=== PATIENT | male | born 1960 | race Hispanic/Latino ===

== ENCOUNTER → 2023-07-28 06:45 | Outpatient (REF) | payer OTHER, SELFPAY ==
[2023-07-28 08:11] LABS: Hematocrit 45.2 % (39.0-52.0); Hemoglobin 15.2 g/dL (13.0-18.0); Mean Corp Hgb Conc. 33.6 g/dL (33.0-37.0); Mean Corpuscular Hgb 29.6 pg (27.0-31.0); Mean Corpuscular Volume 87.9 fL (80.0-94.0); Mean Platelet Volume 11.3 fL (7.4-10.4); Platelet Count 199 10^3/uL (130-400); Red Blood Cell Count 5.14 10^6/uL (4.70-6.10); Red Cell Dist. Width 12.5 % (11.5-14.5); White Blood Cell Count 6.7 10^3/uL (4.8-10.8)
[2023-07-28 08:45] LABS: ALT (SGPT) 18 U/L (0-50); AST (SGOT) 30 U/L (17-59); Albumin 4.2 g/dl (3.5-5.0); Alkaline Phosphatase 71 U/L (38-126); Blood Urea Nitrogen 15 mg/dl (9-20); Calcium 9.6 mg/dl (8.4-10.2); Carbon Dioxide 28 mmol/L (22-30); Chloride 100 mmol/L (98-107); Glucose 94 mg/dl (70-99); HDL Cholesterol 42 mg/dl; Potassium 4.2 mmol/L (3.5-5.1); Sodium 139 mmol/L (135-145); Total Bilirubin 0.8 mg/dl (0.2-1.3); Total Cholesterol 219 mg/dl (50-199); eGFR > 60.00
[2023-07-28 09:01] LABS: LDL Cholesterol, Calculated 166 mg/dl; Triglyceride 58 mg/dl (10-149); Very Low Density Lipoprotein 11 mg/dl (0-30)
[2023-07-28 09:06] LABS: TSH Reflex To Free T4 2.24 uIU/ml (0.47-4.68)
[2023-07-28 09:18] LABS: Glycohemoglobin (HgbA1c) 5.8 % (4.0-5.6)
== END ==
LOC: CLINIC 06:45
PROVIDERS: ATTENDING PHYSICIAN Nurse Practitioner Adult Health
DX: Z00.00 Encounter for general adult medical examination without abnormal findings (principal)
CPT/HCPCS: 36415; 80053; 80061; 83036; 84443; 85027

== ENCOUNTER → 2023-11-02 06:24 | Outpatient (REF) | payer OTHER, SELFPAY ==
[2023-11-02 07:37] LABS: Blood Urea Nitrogen 24 mg/dl (9-20); Carbon Dioxide 28 mmol/L (22-30); Chloride 106 mmol/L (98-107); Glucose 95 mg/dl (70-99); Potassium 3.9 mmol/L (3.5-5.1); Sodium 141 mmol/L (135-145); eGFR > 60.00
[2023-11-02 09:34] LABS: Glycohemoglobin (HgbA1c) 5.8 % (4.0-5.6)
== END ==
LOC: CLINIC 06:24
PROVIDERS: ATTENDING PHYSICIAN Nurse Practitioner Adult Health
DX: R73.03 Prediabetes (principal)
CPT/HCPCS: 36415; 80048; 83036

== ENCOUNTER 2024-01-17 23:02 | Emergency (ER) | payer SELFPAY ==
[2024-01-17 23:10] VITALS: BP 120/66
--- NOTE | 2024-01-17 23:25 | ED.GENMED ---
History of Present Illness
<SANDY Rosas - Last Filed: 01/18/24 01:47>
General
Chief Complaint: Skin Surface Trauma
Time Seen by Provider: 01/17/24 23:16
History of Present Illness
History of Present Illness:
Pt is a 63 y/o male with PMHx of prediabetes and hyperlipidemia presenting after cutting his left pinky finger on a salter can 1 hour ago. Pt reports cleaning the laceration with alcohol after the incidence. Pt reports pain and bleeding to the site,
however bleeding stopped by the time of exam. He is able to bend the finger and states he still has feeling. He is unsure of when his last tetanus shot was. He denies any other complaints at this time.
Past History
<Sindhu Emanuel DO - Last Filed: 01/18/24 01:47>
Past History
ED Past Medical History: Hypercholesterolemia and Other (Prediabetes-hemoglobin A1c 5.8.)
ED Past Surgical History: None
Social History
Tobacco: Non-smoker
Drug: None
Living: with family
Employment: Employed
Family History
Family History: Other (Noncontributory)
Phy Exam
<SANDY Rosas - Last Filed: 01/18/24 01:47>
Physical Exam
Physical Exam:
GENERAL: Alert , in no apparent distress
EYE: pupils equal and reactive
Throat: Airway intact, no exudates
NECK: Supple, no significant adenopathy.
CARDIAC: Regular rate and rhythm .
LUNGS: Clear breath sounds bilaterally, no acute respiratory distress, no wheezes/rales/rhonchi
ABDOMEN: Soft, nondistended, nontender, no cvat
: Mild discomfort to mid suprapubic region. Bladder is nondistended.
NEUROLOGICAL: Alert and oriented, no focal neuro deficits
SKIN: 3 cm laceration on the volar side of the 5th left finger from the DIP joint to the MTP joint extending to the subcutaneous tissue. No tendon involvement.
MUSCULOSKELETAL: ROM and sensation intact to all fingers b/l. No edema, well perfused.
PSYCH: Normal and appropriate interaction.
Course
<SANDY Rosas - Last Filed: 01/18/24 01:47>
Orders/Labs/Results
Orders:
Orders
01/17/24 23:52
Cephalexin Monohydrate [Keflex] 500 mg PO NOW STA
Tetanus/Diphth/Acelpertussis [Adacel] 0.5 ml IM .ONCE ONE
01/18/24 00:32
Ibuprofen [Motrin] 600 mg PO NOW STA
Ibuprofen [Motrin] 600 mg PO NOW STA
Vital Signs
Initial and Last Documented VS:
Initial Vital Signs
Temp Pulse Resp BP Pulse Ox
99 F 52 20 120/66 96
01/17/24 23:10 01/17/24 23:10 01/17/24 23:10 01/17/24 23:10 01/17/24 23:10
Last Documented Vital Signs
Temp Pulse Resp BP Pulse Ox
99 F 52 20 120/66 96
01/17/24 23:10 01/17/24 23:10 01/17/24 23:10 01/17/24 23:10 01/17/24 23:10
<Sindhu Emanuel DO - Last Filed: 01/18/24 01:47>
Orders/Labs/Results
Orders:
Orders
01/17/24 23:52
Cephalexin Monohydrate [Keflex] 500 mg PO NOW STA
Tetanus/Diphth/Acelpertussis [Adacel] 0.5 ml IM .ONCE ONE
01/18/24 00:32
Ibuprofen [Motrin] 600 mg PO NOW STA
Ibuprofen [Motrin] 600 mg PO NOW STA
Vital Signs
Initial and Last Documented VS:
Initial Vital Signs
Temp Pulse Resp BP Pulse Ox
99 F 52 20 120/66 96
01/17/24 23:10 01/17/24 23:10 01/17/24 23:10 01/17/24 23:10 01/17/24 23:10
Last Documented Vital Signs
Temp Pulse Resp BP Pulse Ox
99 F 52 20 120/66 96
01/17/24 23:10 01/17/24 23:10 01/17/24 23:10 01/17/24 23:10 01/17/24 23:10
Procedures
<SANDY Rosas - Last Filed: 01/18/24 01:47>
Laceration Closure
Left Palmar Fifth Finger(s):
Status of Wound: dirty
Size of Wound in cm: 3
Description of Wound Edges: sharp
Preparation: cleaned with Betadine
Anesthesia: 1% Lidocaine, added Na Bicarb to local and Digital-Regional
Revision/Debridement: routine- no revision
Wound exploration: extensive cleaning of contaminated wound
Type of Closure: single layer closure
Skin Closure Material: other (4-0 ethilon )
Number of sutures: 8
Digital Block
Location of injection for digital block: base of digit
Indiction for Digital Block: other (Laceration repair )
Was sensory exam normal prior to exam?: intack pin prick
Type of anesthesia: 1% Lidocaine w/o EPI (added Na bicarb)
Complications: none- good anesthesia
<Sindhu Emanuel DO - Last Filed: 01/18/24 01:47>
*Pulse Oximetry
Patient hypoxic: no
*Critical Care Note
Total Time (30-74mins, 75-104mins- exclusive of procedures): Not Applicable
ED Attending Note
<SANDY Rosas - Last Filed: 01/18/24 01:47>
-
Portions of this chart may have been created with voice recognition software.� Occasional wrong word or��sound alike� substitutions may have occurred due to the inherent limitations of voice recognition software.
<Sindhu Emanuel DO - Last Filed: 01/18/24 01:47>
ED Attending Note
Patient seen and examined by attending physician: Yes
I performed the substantive portion of visit, reviewed & personally made and approve the management plan that is documented in note by myself or LIUS.: Yes
ED Attending Note:
This is a hkrra-[id number]-clgdrmso primarily [place]an-speaking gentleman who presents with left small digit laceration that occurred tonight after opening a can of beans he inadvertently lacerated his left small finger on the can lid.
Mild bleeding initially which has stopped with local pressure. He initiated clean the wound with rubbing alcohol and then applied a bandage and tape.
Unsure as to his last Tdap with believes this was many years ago.
He has history of prediabetes, hypercholesterolemia, most recent hemoglobin A1c stable at 5.8. He follows with an [facility]. Maintained on no medications.
He mitts to moderate local pain of finger but denies weakness nor numbness.
He works in maintenance at a hotel.
PHYSICAL EXAMINATION:
General: 63-year-old gentleman appears his stated age, awake and alert, pleasant, appears in no acute distress. Although primary language is Chilean, he speaks and understands Urdu quite well. He has two family
numbers/friends accompanying him who are also assisting with interpretation.
Neuro: alert and oriented. no focal neurological deficits
Psychiatric: well kept. interactive and cooperative
Musculoskeletal: [Left small digit anterior aspect has a 3 cm linear/longitudinal laceration that is superficial subcutaneous in depth. Laceration extends from proximal mid aspect of the lash just to the PIP joint. No
bleeding. No tendon involvement. No foreign body. There is full with mild intermittent hesitancy at PIP joint with minimal crepitus with range of motion at PIP joint which is chronic and unchanged related to chronic arthritis. Distal sensation,
strength intact. Rapid capillary refill. No soft tissue swelling. No tenderness to the hand or wrist.
Wound is superficial subcutaneous in depth, no tendon involvement nor foreign body imaging. No indication for imaging.
Will give Tdap vaccination.
Will plan for copious irrigation and suture repair.
Will plan for anesthesia with digital block.
Will place on short course of Keflex for infection prevention.
As patient does significant manual labor working in maintenance at a local hotel will provide out of work note for the next 2 days with plan to return to work on January 21.
Will plan for wound dressing along with finger splint to prevent flexion and undue stress on sutured wound.
01/18/2024 0040 AM
Digital block and suture repair by PA student under my direct supervision.
Digital block partially effective thus required some local anesthesia with 1% plain lidocaine with excellent anesthesia results.
Wound dressing and frog splint applied by nursing.
Recommend follow-up with [facility] clinic end of next week for wound recheck and suture removal.
Discussed importance of keeping wound clean and dry and covered especially once returning to work day and continue finger splint for at least the next 5 days.
Discharge Plan
Departure
Patient Disposition: Home (Routine Discharge)
Date of Disposition: 01/18/24
Time of Disposition: 00:29
Patient with high blood pressure during this ER visit?: No
Condition: Good
Discharge Problem:
laceration left 5th finger
Instructions: Laceration Repair With Stitches (DC), Tdap vaccine
Prescriptions:
New
cephalexin 500 mg capsule
1,000 mg PO BID 5 Days Qty: 20 0RF
Referrals:
[facility] - Follow up in 1 week (follow up 7-10 days for suture removal)
NONE,* [Family Provider] -
Stand Alone Forms: Return to Work
Activity Restrictions/Additional Instructions:
Keep wound clean and dry. you can wash area once daily with gentle soap and water, dry, then apply antibiotic ointment and bandaid then finger splint. Do this daily for the next 5-7 days. follow up with [facility] end of next week for suture
removal.
Interventions
Interventions:
*Risk Screen - Suicide Last Done: 01/17/24 23:10
*General Assessment Last Done: 01/17/24 23:10
*Neglect/Abuse Screening Last Done: 01/17/24 23:10
ED- Fall Risk Assessment Last Done: 01/17/24 23:10
*ED COVID-19 Vaccine History Last Done: 01/17/24 23:10
*Nursing Disposition Last Done: 01/18/24 00:40
ED-Skin Assessment Last Done: 01/18/24 00:08
Discharge Date and Time
Discharge Date/Time: 01/18/24 00:41
Print Language: [place] KONG[place]
[2024-01-18] MEDS: KEFLEX 500 MG PO (00:02)
[2024-01-18] MEDS: ADACEL 0.5 ML IM (00:03)
[2024-01-18] MEDS: MOTRIN 600 MG PO (00:34)
--- NOTE | 2024-01-18 00:40 | EDRN ---
Fingers cleaned and dressed with bacitracin and bandaid and splint, went over instructions for at home with patient and family member
== END 2024-01-18 00:41 | disposition home or self-care (01) ==
LOC: EMR 23:02
PROVIDERS: EMERGENCY PHYSICIAN Emergency Medicine
DX: S61.227A Laceration with foreign body of left little finger without damage to nail, initial encounter (principal); W26.8XXA Contact with other sharp object(s), not elsewhere classified, initial encounter; Z23 Encounter for immunization; R73.03 Prediabetes; E78.00 Pure hypercholesterolemia, unspecified
CPT/HCPCS: 64450; 99284; 12042; 90471; 90715

== ENCOUNTER 2024-01-27 08:39 | Emergency (ER) | payer SELFPAY ==
[2024-01-27 08:42] VITALS: BP 122/64
--- NOTE | 2024-01-27 09:11 | ED.GENMED ---
History of Present Illness
General
Chief Complaint: Wound Check/Suture Removal
Source: patient and family
Exam Limitations: none
Time Seen by Provider: 01/27/24 09:02
History of Present Illness
History of Present Illness:
Here for suture removal. No complaints. 10 days old.
Past History
Past History
ED Past Medical History: Hypercholesterolemia and Other (Prediabetes-hemoglobin A1c 5.8.)
ED Past Surgical History: None
Social History
Tobacco: Non-smoker
Drug: None
Living: with family
Employment: Employed
Family History
Family History: Other (Noncontributory)
Phy Exam
Physical Exam
Physical Exam:
General: Nontoxic appearing in no distress
Skin: Warm and dry, no rash
Neuro: Alert, nontoxic, grossly nonfocal
Psychiatric: Good eye contact and appropriate
Musculoskeletal: Well-healing laceration although slightly dry. Only 7 stitches present
Course
Vital Signs
Initial and Last Documented VS:
Initial Vital Signs
Temp Pulse Resp BP Pulse Ox
98 F 55 16 122/64 98
01/27/24 08:42 01/27/24 08:42 01/27/24 08:42 01/27/24 08:42 01/27/24 08:42
Last Documented Vital Signs
Temp Pulse Resp BP Pulse Ox
98 F 55 16 122/64 98
01/27/24 08:42 01/27/24 08:42 01/27/24 08:42 01/27/24 08:42 01/27/24 08:42
*Critical Care Note
Total Time (30-74mins, 75-104mins- exclusive of procedures): Not Applicable
Update Note
Update Note:
Procedure: Suture removed without difficulty.
ED Attending Note
-
Portions of this chart may have been created with voice recognition software.� Occasional wrong word or��sound alike� substitutions may have occurred due to the inherent limitations of voice recognition software.
Discharge Plan
Departure
Patient Disposition: Home (Routine Discharge)
Date of Disposition: 01/27/24
Time of Disposition: 09:12
Patient with high blood pressure during this ER visit?: No
Discharge Problem:
Suture removal/wound check
Instructions: Wound Care (DC)
Prescriptions:
No Action
cephalexin 500 mg capsule
1,000 mg PO BID 5 Days Qty: 20 0RF
Referrals:
Mina Farris MD [Family Provider] - Next open appointment
Interventions
Interventions:
*Risk Screen - Suicide Last Done: 01/27/24 09:04
*General Assessment Last Done: 01/27/24 09:05
*Neglect/Abuse Screening Last Done: 01/27/24 09:04
ED- Fall Risk Assessment Last Done: 01/27/24 09:04
*ED COVID-19 Vaccine History Last Done: 01/27/24 09:05
Discharge Date and Time
Print Language: [place]THER[place] IRISH
== END 2024-01-27 09:23 | disposition home or self-care (01) ==
LOC: EMR 08:39
PROVIDERS: EMERGENCY PHYSICIAN Emergency Medicine; FAMILY PHYSICIAN Internal Medicine Gastroenterology
DX: Z48.02 Encounter for removal of sutures (principal); E78.00 Pure hypercholesterolemia, unspecified
CPT/HCPCS: 99282

== ENCOUNTER → 2024-05-03 06:20 | Outpatient (REF) | payer OTHER, SELFPAY ==
[2024-05-03 11:46] LABS: Glycohemoglobin (HgbA1c) 5.6 % (4.0-5.6)
== END ==
LOC: REG 06:20
PROVIDERS: ATTENDING PHYSICIAN Nurse Practitioner Adult Health
DX: R73.03 Prediabetes (principal)
CPT/HCPCS: 36415; 83036

== ENCOUNTER 2024-06-10 11:03 | Emergency (ER) | payer SELFPAY ==
[2024-06-10 11:06] VITALS: BP 122/77
[2024-06-10 11:19] LABS: % Basophils 0.1 % (0-2); % Eosinophils 1.1 % (0-6); % Immature Granulocytes 0.7 % (0-0.5); % Lymphocytes 4.9 % (20.5-51.1); % Neutrophils 89.2 % (42.2-75.2); Absolute Eosinophils 0.1 10^3/uL (0-0.7); Absolute Immature Granulocytes 0.1 10^3/uL (0-0.05); Absolute Lymphocytes 0.5 10^3/uL (1.2-3.4); Absolute Monocytes 0.4 10^3/uL (0.1-0.6); Absolute Neutrophils 8.7 10^3/uL (1.4-6.5); Hematocrit 45.4 % (39.0-52.0); Hemoglobin 14.8 g/dL (13.0-18.0); Mean Corp Hgb Conc. 32.6 g/dL (33.0-37.0); Mean Corpuscular Hgb 29.4 pg (27.0-31.0); Mean Corpuscular Volume 90.1 fL (80.0-94.0); Nucleated Red Blood Cells % 0 % (-); Platelet Count 155 10^3/uL (130-400); Red Blood Cell Count 5.04 10^6/uL (4.70-6.10); White Blood Cell Count 9.8 10^3/uL (4.8-10.8)
[2024-06-10 12:00] VITALS: BP 123/74
[2024-06-10 12:19] LABS: Blood Urea Nitrogen 26 mg/dl (9-20); Calcium 7.9 mg/dl (8.4-10.2); Carbon Dioxide 21 mmol/L (22-30); Chloride 108 mmol/L (98-107); Glucose 107 mg/dl (70-99); Sodium 136 mmol/L (135-145); Troponin I < 0.012 ng/ml; eGFR > 60.00
--- NOTE | 2024-06-10 12:55 | ED.GENMED ---
History of Present Illness
General
Chief Complaint: Abdominal Symptoms
Source: patient and family
Time Seen by Provider: 06/10/24 12:33
History of Present Illness
History of Present Illness:
This patient is a 64-year-old male presents emergency department after suffering a syncopal event just prior to presentation. Patient states he was feeling perfectly well until around midnight last night when he developed a gradual onset of a
generalized headache and abdominal discomfort mostly in the epigastric area. By 4 AM he developed nausea associated with multiple episodes of nonbloody vomiting. He did not eat this morning before going to work. While at work, just prior to
presentation here, he went to the assistant front end manager and sort of slouched down on the counter with complaints of dizziness, and not feeling well. He fell backwards, hitting his head and had a syncopal event lasting approximately 30 seconds. Bystanders
assisted him to a chair. There was no incontinence, tongue biting, or tonic-clonic activity noted. Patient was noted to be 'coherent' when his manager fire came to see him. Currently, patient has a mild headache particularly at the back of his head
where he hit it. He is no longer nauseous. There is a history of sick contacts in his son who had recent nausea and vomiting as well. The patient denies chest pain or pressure, palpitations, dyspnea, visual changes, numbness, tingling, focal
weakness, neck pain, or other complaints.
Past History
Past History
ED Past Medical History: Hypercholesterolemia and Other (Prediabetes-hemoglobin A1c 5.8.)
ED Past Surgical History: None
Social History
Tobacco: Non-smoker
Alcohol: None
Drug: None
Personal:
Living: with family
Employment: Employed
Family History
Family History: Other (Noncontributory)
Phy Exam
Physical Exam
Physical Exam:
GENERAL: Alert , in no apparent distress
EYE: pupils equal and reactive, EOMI, no nystagmus, no photophobia
NECK: Supple, no significant adenopathy, no midline tenderness.
ENT: o/p clr, mmm, no signs of head or facial injury noted.
CARDIAC: Regular rate and rhythm .
LUNGS: Clear breath sounds bilaterally, no acute respiratory distress, no wheezes/rales/rhonchi
ABDOMEN: Soft, epigastric and rlq/rmq tenderness, no r/g, no cvat
NEUROLOGICAL: Alert and oriented, no focal neuro deficits, gadcka-cz-[id number] normal, motor 5 out of 5, sensory intact
SKIN: Warm and dry, skin intact.
MUSCULOSKELETAL: No edema, well perfused.
PSYCH: Normal and appropriate interaction.
Course
Orders/Labs/Results
Orders:
Orders
06/10/24 11:08
Electrocardiogram (*1) Urgent
Reason for Study: Syncope
CT Cervical Spine W/o Iv Contr Urgent
Comment:
Reason For Exam: syncope
CT Head W/o Iv Contrast Urgent
Comment:
Reason For Exam: syncope
06/10/24 11:09
EKG- Treatment ONCE
06/10/24 11:10
Complete Blood Count/With Diff Urgent
06/10/24 11:29
Basic Metabolic Panel Urgent
Troponin I Urgent
06/10/24 12:55
CT Abd/Pel (IV only)-DH only Urgent
Comment:
Reason For Exam: abd pain, n, v
0.9% Sodium Chloride 1000 ml [Nss] 1,000 ml IV BOLUS
Ketorolac [Toradol] 15 mg IV NOW STA
06/10/24 15:30
Urinalysis Reflex To Culture Urgent
Date Specimen was Collected: 06/10/24
Time Specimen was Collected: 15:28
Abnormal Lab Results
06/10/24 06/10/24
11:10 11:29
MCHC 32.6 L g/dL
(33.0-37.0)
MPV 11.0 H fL
(7.4-10.4)
Abs Immat Gran (auto) 0.1 H 10^3/uL
(0-0.05)
Absolute Neuts (auto) 8.7 H 10^3/uL
(1.4-6.5)
Absolute Lymphs (auto) 0.5 L 10^3/uL
(1.2-3.4)
Immature Gran % 0.7 H %
(0-0.5)
Neutrophils % 89.2 H %
(42.2-75.2)
Lymphocytes % 4.9 L %
(20.5-51.1)
Chloride 108 H mmol/L
(98-107)
Carbon Dioxide 21 L mmol/L
(22-30)
BUN 26 H mg/dl
(9-20)
Glucose 107 H mg/dl
(70-99)
Calcium 7.9 L mg/dl
(8.4-10.2)
06/10/24 11:10
06/10/24 11:29
Vital Signs
Initial and Last Documented VS:
Initial Vital Signs
Temp Pulse Resp BP Pulse Ox
98.0 F 59 20 122/77 96
06/10/24 11:06 06/10/24 11:06 06/10/24 11:06 06/10/24 11:06 06/10/24 11:06
Last Documented Vital Signs
Temp Pulse Resp BP Pulse Ox
98.0 F 70 20 111/73 98
06/10/24 11:06 06/10/24 15:30 06/10/24 15:30 06/10/24 15:00 06/10/24 15:30
*Critical Care Note
Total Time (30-74mins, 75-104mins- exclusive of procedures): Not Applicable
Update Note
Update Note:
Patient presents to the Emergency Department with syncope
Number and Complexity of Problems Addressed at the Encounter
� Chronic conditions affecting care:
� Acute Exacerbation and/or Progression of Chronic Illness:
� Differential Diagnosis includes: But not limited to vasovagal, dehydration, appendicitis, etc. etc.
Amount and/or Complexity of Data to be Reviewed and Analyzed
� I performed an independent evaluation of and my interpretation is:
EKG:
CT: Read by radiology, head and neck CT NAD.. abd pelvis Moderate diffuse bladder wall thickening. This can be seen with cystitis or bladder outlet obstruction.
Moderate fecal material in the region of rectum. Fecal impaction cannot be excluded.
Moderate fecal matter throughout the colon.
Mild diverticulosis. No evidence of acute diverticulitis.
Mild hepatic fatty infiltration.
Xrays:
Laboratory Studies:nl wbc with sl L shift, prerenal azotemia, trop wnl
Other:
� Review of other/old records reveals:
� Clinical information was obtained by an independent historian: Son, , and manager fire all who are at bedside. Language line used to assist with interpretation
� Prescriptions/Medications Considered but not given:
� Further testing considered but not performed:
Risk of Complications and/or Morbidity or Mortality of Patient Management
� Social determinants of health affecting care:
� Discussion with other providers (PCP, Hospitalists, Consultants, etc):
� Escalation of care including admission/observation vs risk of discharge considered: Repeat discussion with patient with assistance of language line� He was updated regarding his results including his CAT scan and labs. He
feels much better, and has no complaints. Abdomen soft and nontender. UA is pending. Plan is for patient to be discharged and I will contact him if UA is abnormal. Otherwise patient will follow-up with primary care doctor regarding CT findings.
ED Attending Note
-
Portions of this chart may have been created with voice recognition software.� Occasional wrong word or��sound alike� substitutions may have occurred due to the inherent limitations of voice recognition software.
Discharge Plan
Departure
Patient Disposition: Home (Routine Discharge)
Date of Disposition: 06/10/24
Time of Disposition: 15:15
Patient with high blood pressure during this ER visit?: Yes
Condition: Good
Discharge Problem:
Syncope
Instructions: Syncope (fainting), Dehydration, Adult (DC), Nausea and Vomiting, Adult (DC), BLOOD PRESSURE
Prescriptions:
No Action
cephalexin 500 mg capsule
1,000 mg PO BID 5 Days Qty: 20 0RF
Referrals:
UNKNOWN - PT DOES,NOT KNOW [Family Provider] -
Activity Restrictions/Additional Instructions:
Please see attached blood work and CAT scan report. You should bring this to a me/her primary care doctor for your next appointment. If you develop fever, chest pain, shortness of breath, new or persistent abdominal pain, or other worrisome signs,
please return to the ER immediately.
Interventions
Interventions:
*General Assessment Last Done: 06/10/24 11:06
ED- Fall Risk Assessment Last Done: 06/10/24 11:17
*Nursing Disposition Last Done: 06/10/24 15:47
EN-Fgobdt-Nkdxtjcptw Assessment Last Done: 06/10/24 11:17
Discharge Date and Time
Discharge Date/Time: 06/10/24 15:47
Print Language: [place]
[2024-06-10 13:00] VITALS: BP 110/78
[2024-06-10] MEDS: TORADOL 15 MG IV (13:01)
[2024-06-10] MEDS: NSS 1000 IV (13:01)
[2024-06-10 14:44] VITALS: BP 108/67
[2024-06-10 15:00] VITALS: BP 111/73
[2024-06-10 15:59] LABS: Urine Albumin Negative (Neg - Trace); Urine Bilirubin Negative (Negative); Urine Character Clear (Clear); Urine Color Yellow; Urine Glucose Negative (Negative); Urine Ketone Negative (Negative); Urine Leukocyte Negative (Negative); Urine Nitrite Negative (Negative); Urine Occult Blood Negative (Negative); Urine Urobilinogen Negative (Neg - 1+); Urine pH 6.5 (5.0-9.0)
== END 2024-06-10 15:47 | disposition home or self-care (01) ==
LOC: EMR 11:03
PROVIDERS: EMERGENCY PHYSICIAN Emergency Medicine
DX: R55 Syncope and collapse (principal); R51.9 Headache, unspecified; R10.13 Epigastric pain; W19.XXXA Unspecified fall, initial encounter; E78.00 Pure hypercholesterolemia, unspecified
CPT/HCPCS: 96374; 96361; 99284; 70450; 72125; 74177; 80048; 81003; 84484; 85025; 93005; Q9967

== ENCOUNTER → 2025-04-12 07:16 | Outpatient (REF) | payer OTHER, SELFPAY ==
[2025-04-12 08:19] LABS: Hematocrit 43.9 % (39.0-52.0); Hemoglobin 14.5 g/dL (13.0-18.0); Mean Corp Hgb Conc. 33.0 g/dL (33.0-37.0); Mean Corpuscular Volume 88.5 fL (80.0-94.0); Platelet Count 175 10^3/uL (130-400); Red Cell Dist. Width 12.8 % (11.5-14.5)
[2025-04-12 08:56] LABS: ALT (SGPT) 16 U/L (0-50); AST (SGOT) 24 U/L (17-59); Albumin 4.5 g/dl (3.5-5.0); Alkaline Phosphatase 75 U/L (38-126); Blood Urea Nitrogen 17 mg/dl (9-20); Calcium 9.3 mg/dl (8.4-10.2); Carbon Dioxide 27 mmol/L (22-30); Chloride 107 mmol/L (98-107); Glucose 107 mg/dl (70-99); HDL Cholesterol 49 mg/dl; LDL Cholesterol, Calculated 159 mg/dl; Potassium 4.6 mmol/L (3.5-5.1); Sodium 140 mmol/L (135-145); Total Protein 7.2 g/dl (6.3-8.2); Very Low Density Lipoprotein 10 mg/dl (0-30); eGFR > 60.00
[2025-04-12 11:42] LABS: Glycohemoglobin (HgbA1c) 5.5 % (4.0-5.9)
== END ==
LOC: CLINIC 07:16
PROVIDERS: ATTENDING PHYSICIAN Nurse Practitioner Adult Health
DX: R73.03 Prediabetes (principal); Z00.00 Encounter for general adult medical examination without abnormal findings; E78.00 Pure hypercholesterolemia, unspecified; Z12.11 Encounter for screening for malignant neoplasm of colon
CPT/HCPCS: 36415; 80053; 80061; 83036; 84443; 85027